=== PATIENT | female | born 1975 | race Two or more races ===

== ENCOUNTER 2017-04-07 13:39 | Outpatient (CLI) | payer OTHER | END 2017-04-07 14:05 | disposition home or self-care (01) | LOC: MAMO-SONO 13:39 | DX: N60.09 Solitary cyst of unspecified breast (principal); Z12.31 Encounter for screening mammogram for malignant neoplasm of breast ==

== ENCOUNTER 2017-12-23 12:39 | Outpatient (CLI) | payer OTHER | END 2017-12-23 12:40 | disposition home or self-care (01) | LOC: MAMO-SONO 12:39 | DX: Z12.31 Encounter for screening mammogram for malignant neoplasm of breast (principal); N60.01 Solitary cyst of right breast; N60.02 Solitary cyst of left breast ==

== ENCOUNTER 2019-01-08 14:18 | Outpatient (CLI) | payer OTHER | END 2019-01-08 15:12 | disposition home or self-care (01) | LOC: MAMO-SONO 14:18 | DX: Z12.31 Encounter for screening mammogram for malignant neoplasm of breast (principal); Z87.898 Personal history of other specified conditions; N60.09 Solitary cyst of unspecified breast ==